=== PATIENT | female | born 1985 | race Two or more races ===

== ENCOUNTER 2019-02-15 18:55 | Inpatient (IN) | payer OTHER ==
[~2019-02-15] VITALS: Ht 165.1 cm; Wt 93.0 kg
[2019-02-15] MEDS ORDERED: ONDANSETRON HCL 4MG/2ML INJ IV STA (20:15)
[2019-02-15] MEDS ORDERED: SODIUM CHLORIDE 0.9% 1000ML BAG (SEPSIS BOLUS) IV ONE (20:15)
[2019-02-15] MEDS ORDERED: CEFTRIAXONE 1 G PREMIX 50 ML IV ONE (20:15)
[2019-02-15 20:53] LABS: CLARITY URINE CLOUDY (CLEAR); COLOR URINE YELLOW (YELLOW); KETONES URINE 2+ (NEGATIVE); LEUKOCYTE ESTERASE URINE 2+ (NEGATIVE); NITRITE URINE POSITIVE (NEGATIVE); OCCULT BLOOD URINE 2+ (NEGATIVE); PH URINE 5.5 (4.5-8.0); PROTEIN URINE 1+ (NEGATIVE); SPECIFIC GRAVITY URINE 1.019 (1.005-1.030)
[2019-02-15 21:27] LABS: CHLORIDE 99 mEq/L (98-107)
[2019-02-15 21:28] LABS: BASOPHILS % 0.4 % (0.0-2.0); HEMOGLOBIN. 14.2 g/dL (12.0-16.0); LYMPHOCYTES % 9.9 % (20.0-50.0); MEAN CORPUSCULAR HEMOGLOBIN 30.8 pg (28.0-32.0); MEAN CORPUSCULAR VOLUME 91.3 fL (81.0-99.0); MEAN PLATELET VOLUME 9.2 fl (7.4-10.4); MONOCYTES % 11.2 % (2.0-8.0); NEUTROPHILS % 78.5 % (40.0-76.0); PLATELET 233 x1000/uL (130-400); RED CELL DISTRIBUTION WIDTH 13.6 % (11.6-14.6)
[2019-02-15 21:30] LABS: PROTHROMBIN TIME 10.2 sec (9.6-11.0)
[2019-02-16] MEDS: SODIUM CHLORIDE 0.9% 1,000 ML IV SCH ×2 (03:04→13:04)
[2019-02-16] MEDS ORDERED: LEVOFLOXACIN 500MG PREMIX 100 ML IV SCH ×2 (03:15→04:10)
[2019-02-16] MEDS ORDERED: ACETAMINOPHEN 325MG TABLET PO PRN (03:15)
[2019-02-16] MEDS ORDERED: DIPHENHYDRAMINE 50MG/ML VIAL IV PRN (03:15)
[2019-02-16] MEDS ORDERED: ONDANSETRON HCL 4MG/2ML INJ IV PRN (03:15)
[2019-02-16] MEDS ORDERED: ACETAMINOPHEN 500MG TABLET PO ONE (03:30)
[2019-02-16 06:08] VITALS: BP 121/12
[2019-02-16 08:00] VITALS: BP 121/72
[2019-02-16] MEDS ORDERED: KETOROLAC 30MG/ML VIAL IV PRN (08:30)
[2019-02-16] MEDS ORDERED: FAMOTIDINE 20MG/2ML VIAL IV SCH (09:00)
[2019-02-16 12:01] VITALS: BP 121/67
[2019-02-16 16:00] VITALS: BP 142/72
[2019-02-16 17:08] VITALS: BP 142/74
[2019-02-17] MEDS ORDERED: LEVOFLOXACIN 500MG PREMIX 100 ML IV SCH (03:00)
== END 2019-02-16 17:58 | disposition home or self-care (01) | DRG 872 ==
LOC: ER 18:55 → 6EST 02-16 02:15 → EDBEDREQ 02-16 02:24 → EDBEDREQDT 02-16 02:24 → EDBEDREQSVC 02-16 02:24 → EDBEDREQTM 02-16 02:24 → EDBEDREQSVC 02-16 03:06 → EDBEDREQTM 02-16 03:06 → ENRESERV 02-16 07:21
PROVIDERS: ADMIT Internal Medicine; ATTEND Internal Medicine
DX: A41.9 Sepsis, unspecified organism (principal); N39.0 Urinary tract infection, site not specified; R65.20 Severe sepsis without septic shock; Z87.440 Personal history of urinary (tract) infections
CPT/HCPCS: 36415; 71045; 76705; 83605; 84145; 84484; 87077; 87186; 93005; 99285; J0696; J1956; J2405; J3490; J7030